=== PATIENT | male | born 1950 | race Caucasian/White ===

== ENCOUNTER 2025-02-07 09:10 | Emergency (ER) | payer MEDICARE ==
[2025-02-07 09:42] VITALS: BP 144/71; PULSE 64
[2025-02-07] MEDS: Ketorolac 30 MG/ML SDV IM ONE (10:35)
== END 2025-02-07 11:08 | disposition home or self-care (01) ==
LOC: JP.ED 09:10
DX: R07.89 Other chest pain (principal); E78.00 Pure hypercholesterolemia, unspecified; Z91.013 Allergy to seafood; Z79.899 Other long term (current) drug therapy; Z88.8 Allergy status to other drugs, medicaments and biological substances
CPT/HCPCS: 71046; 96372; 99284; J1885